=== PATIENT | female | born 1985 | race Caucasian/White ===

== ENCOUNTER → 2018-01-23 | Day surgery (SDC) | payer OTHER ==
[~2018-01-23] VITALS: Ht 165.1 cm; Wt 65.8 kg
[~2018-01-23] MED LIST: DOXYCYCLINE MO100 MG PO; DULOXETINE30 MG PO; GABAPENTIN300 MG PO; NAPROXEN500 MG PO
--- NOTE | 2018-01-23 11:21 | Operative Report ---
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 Because of the location this could not be treated in the office so she was scheduled for outpatient surgery Operative/Procedure Note Note: On the morning of her procedure she did a fleets enema prior to coming to the hospital. She was taken to the operating room placed in supine position on the operating table. IV sedation was initiated with the patient was comfortable she was converted to lithotomy position in Carlos stirrups. The perineum was prepped and draped in usual fashion. An anal block was performed using 0.5% Marcaine with epinephrine.. A total of 30 cc was injected. Gently dilated the anal canal and then he Fansler operating proctoscope was placed in the anal canal. Some residual mucus was irrigated out of the rectum. In the low rectum anal canal was inspected quadrant by quadrant. The lesion was present in the right posterior anal canal. Lesion was cephalad to the dentate line sitting on 1 of the internal hemorrhoids. The lesion was probably 3-4 mm in diameter. The lesion was grasped with tooth forceps and then amputated at the base. The hemorrhoid tissue was then fulgurated to assure hemostasis. The procedure was then concluded. The perineum was cleaned and dried. Bacitracin ointment and a clean dressing was applied. Patient was converted to supine position and tolerated procedure well the patient was then taken to the recovery room in good condition. At the end of the procedure all needle sponges and instrument were accounted for Findings: Small polypoid lesion posterior right lower rectum removed Discharge Disposition: PACU
== END ==
LOC: STS 02:43
DX: K62.1 Rectal polyp (principal)
CPT/HCPCS: 81025; 88305; J0131; J1100; J1885; J2250; J2405